=== PATIENT | female | born 1930 | race Caucasian/White ===

== ENCOUNTER 2016-03-19 14:38 | Inpatient (IN) | payer OTHER ==
[~2016-03-19] VITALS: Ht 152.4 cm; Wt 91.6 kg
[~2016-03-19 14:38] MED LIST: ALLOPURINOL300 MG PO; AVENTYL,PAMELOR25 MG PO; BENICAR40 MG; BENICAR40 MG PO; CALCIUM 500 MG1 EACH PO; CILOSTAZOL100 MG; CILOSTAZOL100 MG PO; CLONIDINE1 EACH TD; COUMADIN2.5 MG; DAILY VITE1 EAC1 PO; DIGOX250 MCG PO; DIGOXIN125 MCG; DIGOXIN125 MCG PO; FISH OIL500 MG; FUROSEMIDE40 MG PO; Fiber Therapy PO; Fish Oil PO; IRBESARTAN150 MG PO; KLOR-CON M2020 MEQ PO; LASIX40 MG PO; LEVOTHYROXINE125 MCG; LEVOTHYROXINE125 MCG PO; LEVOTHYROXINE150 MCG PO; LOMOTIL TABLET1 EACH PO; LOSARTAN POTASS50 MG PO; Lanoxin,Digitek PO; Lasix PO; Levothroid,Synthroid PO; METAMUCIL POWD798 GM PO; METOPROLOL SUC200 MG; METOPROLOL SUC200 MG PO; METOPROLOL SUCC50 MG PO; MYCOSTATIN1 APPLICAT TP; NORTRIPTYLINE H25 MG PO; PREVALITE PACKET4 GM PO; Pletal PO; SIMVASTATIN20 MG; SIMVASTATIN20 MG PO; SYNTHROID175 MCG PO; Toprol XL PO; WARFARIN SODIUM2 MG PO; Zocor PO; Zyloprim PO; [UNRECOGNIZED DRUG - OTHER] BOTH EYES; [UNRECOGNIZED DRUG - SUPPLY]
[2016-03-19 16:03] LABS: EOSINOPHIL (%) 1.5 % (0-5); EOSINOPHIL COUNT 0.1 K/uL (0-0.3); HEMATOCRIT 31.1 % (36.0-46.0); IMMATURE GRANULOCYTE (%) 0.5 % (0.0-0.7); IMMATURE GRANULOCYTE COUNT 0.3 K/uL; LYMPHOCYTE COUNT 2.1 K/uL (1.0-2.8); MCH 30.2 PG (29.0-34.0); MCHC 33.1 G/DL (30.0-36.0); MCV 91.2 FL (83-99); MEAN PLAT.VOLUME 9.5 uM^3 (9.5-12.4); MONOCYTE (%) 7.8 % (3-12); MONOCYTE COUNT 0.5 K/uL (0-0.8); NEUTROPHIL (%) 58.3 % (45-76); NEUTROPHIL COUNT 3.9 K/uL (1.8-6.4); PLATELET COUNT 206 K/uL (156-360); RBC DIS.WIDTH-CV 16.1 % (11.8-14.6); RBC DIS.WIDTH-SD 51.7 % (39-53); RED BLOOD COUNT 3.41 M/uL (3.80-5.20); WHITE BLOOD COUNT 6.6 K/uL (4.1-10.2)
[2016-03-19 16:13] LABS: PROTHROMBIN TIME 93.2 (9.2-11.2)
[2016-03-19 16:14] LABS: INTER. NORMALIZED RATIO 8.6
[2016-03-19 16:39] LABS: CHLORIDE 111 mEq/L (99-109); POTASSIUM 5.4 mEq/L (3.7-5.4); SODIUM 140 mEq/L (136-147)
[2016-03-19 16:41] LABS: GLUCOSE 92 mg/dL (70-99)
[2016-03-19 16:43] LABS: ANION GAP 9 MEQ/L (2-14); TOTAL BILIRUBIN 0.3 mg/dL (0.0-1.0)
[2016-03-19 16:45] LABS: ALKALINE PHOSPHATASE 62 IU/L (3-129); GFR ESTIMATE (CALCULATED) 42 mL/min/
[2016-03-19 16:46] LABS: UREA NITROGEN (BUN) 73 mg/dL (9-23)
[2016-03-19 16:54] LABS: DIGOXIN 0.7 ng/mL (0.8-2.0)
[2016-03-19 17:06] LABS: ADD MIUA? YES; BILIRUBIN NEGATIVE; BLOOD MODERATE; COLOR YELLOW ((YELLOW)); GLUCOSE (STRIP) NEGATIVE; KETONES NEGATIVE; LEUKOCYTES NEGATIVE; NITRITE NEGATIVE; PROTEIN (STRIP) NEGATIVE; SPECIFIC GRAVITY 1.016 (1.000-1.030); UROBILINOGEN 0.2 MG/DL (0.2-1.0)
[2016-03-19 17:36] LABS: BACTERIA 1+; CASTS NONE SEEN /LPF; EPITHELIAL CELLS RARE; MUCUS NONE SEEN; UCUL ADDED? NO; WHITE BLOOD CELLS NONE SEEN /HPF (0-5)
[2016-03-19 17:37] LABS: AMORPHOUS URATES CRYSTALS 2+; CRYSTALS PRESENT
[2016-03-19 18:26] LABS: TROP-I INTERPRETATION NEGATIVE; TROPONIN-I 0.04 ng/mL (0.0-0.30)
[2016-03-19] MEDS ORDERED: COUMADIN3 MG PO (19:43)
[2016-03-19] MEDS ORDERED: LEVO-T175 MCG PO (20:32)
[2016-03-19] MEDS ORDERED: INDERAL20 MG PO (20:34)
[2016-03-19 22:35] VITALS: BP 171/70
[2016-03-20 03:50] VITALS: BP 109/46
[2016-03-20 06:48] LABS: HEMATOCRIT 27.9 % (36.0-46.0); MCH 29.9 PG (29.0-34.0); MCHC 32.6 G/DL (30.0-36.0); MCV 91.8 FL (83-99); MEAN PLAT.VOLUME 11.1 uM^3 (9.5-12.4); PLATELET COUNT 169 K/uL (156-360); RBC DIS.WIDTH-CV 16.3 % (11.8-14.6); RBC DIS.WIDTH-SD 54.7 % (39-53); RED BLOOD COUNT 3.04 M/uL (3.80-5.20); WHITE BLOOD COUNT 5.9 K/uL (4.1-10.2)
[2016-03-20 07:00] VITALS: BP 144/61
[2016-03-20 07:12] LABS: INTER. NORMALIZED RATIO 2.2; PROTHROMBIN TIME 22.6 (9.2-11.2)
[2016-03-20 07:19] LABS: ANION GAP 9 MEQ/L (2-14); CHLORIDE 112 MEQ/L (99-109); GFR ESTIMATE (CALCULATED) 46 mL/min/; GLUCOSE 74 mg/dL (70-99); POTASSIUM 4.4 MEQ/L (3.7-5.4); SAMPLE HEMOLYSIS CHECK 0; SAMPLE ICTERIC CHECK 0; SAMPLE LIPEMIA CHECK 0; SODIUM 141 MEQ/L (136-147); UREA NITROGEN (BUN) 62 mg/dL (9-23)
[2016-03-20 13:00] VITALS: BP 122/57
[2016-03-20 13:22] VITALS: BP 130/62
[2016-03-20 14:54] LABS: INTER. NORMALIZED RATIO 1.7; PROTHROMBIN TIME 17.6 (9.2-11.2)
[2016-03-20 15:09] LABS: MCH 29.6 PG (29.0-34.0); MCHC 32.5 G/DL (30.0-36.0); MCV 91.2 FL (83-99); MEAN PLAT.VOLUME 10.6 uM^3 (9.5-12.4); PLATELET COUNT 172 K/uL (156-360); RBC DIS.WIDTH-CV 16.7 % (11.8-14.6); RBC DIS.WIDTH-SD 54.5 % (39-53); RED BLOOD COUNT 3.07 M/uL (3.80-5.20); WHITE BLOOD COUNT 6.2 K/uL (4.1-10.2)
[2016-03-20 15:16] LABS: EOSINOPHIL COUNT 0.1 K/uL (0-0.3); IMMATURE GRANULOCYTE (%) 0.3 % (0.0-0.7); LYMPHOCYTE COUNT 1.6 K/uL (1.0-2.8); MONOCYTE (%) 5.6 % (3-12); MONOCYTE COUNT 0.4 K/uL (0-0.8); NEUTROPHIL (%) 68.1 % (45-76); NEUTROPHIL COUNT 4.3 K/uL (1.8-6.4)
[2016-03-20 20:00] VITALS: BP 132/59
[2016-03-20 21:12] LABS: POINT-OF-CARE METER ID UU13113781
[2016-03-20 23:20] VITALS: BP 136/60
[2016-03-21 03:00] VITALS: BP 139/67
[2016-03-21 05:51] LABS: HEMATOCRIT 27.4 % (36.0-46.0); MCH 29.4 PG (29.0-34.0); MCHC 32.5 G/DL (30.0-36.0); MCV 90.4 FL (83-99); RBC DIS.WIDTH-CV 16.3 % (11.8-14.6); RBC DIS.WIDTH-SD 53.5 % (39-53); RED BLOOD COUNT 3.03 M/uL (3.80-5.20); WHITE BLOOD COUNT 7.3 K/uL (4.1-10.2)
[2016-03-21 06:10] LABS: INTER. NORMALIZED RATIO 1.3; PROTHROMBIN TIME 13.8 (9.2-11.2)
[2016-03-21 06:27] LABS: ALKALINE PHOSPHATASE 52 IU/L (3-129); ANION GAP 9 MEQ/L (2-14); CHLORIDE 111 MEQ/L (99-109); GFR ESTIMATE (CALCULATED) 35 mL/min/; GLUCOSE 78 mg/dL (70-99); POTASSIUM 4.4 MEQ/L (3.7-5.4); SAMPLE HEMOLYSIS CHECK 0; SAMPLE ICTERIC CHECK 0; SAMPLE LIPEMIA CHECK 0; SODIUM 141 MEQ/L (136-147); TOTAL BILIRUBIN 0.4 MG/DL (0.0-1.0); UREA NITROGEN (BUN) 64 mg/dL (9-23)
[2016-03-21 07:00] VITALS: BP 148/72
[2016-03-21 07:04] LABS: PLATELET COUNT 120 K/uL (156-360)
[2016-03-21 08:17] LABS: POINT-OF-CARE USER ID NUTSLF44
[2016-03-21 11:00] VITALS: BP 152/78
[2016-03-21 11:58] LABS: POINT-OF-CARE USER ID NUTSLF44
[2016-03-21 15:00] VITALS: BP 119/56
[2016-03-21 17:29] LABS: POINT-OF-CARE METER ID UU13113781; POINT-OF-CARE USER ID ENVKC36
[2016-03-21 19:00] VITALS: BP 153/68
[2016-03-21 21:06] LABS: POINT-OF-CARE METER ID UU13113781
[2016-03-21 23:15] VITALS: BP 152/69
[2016-03-22 03:00] VITALS: BP 137/65
[2016-03-22] MEDS ORDERED: METOPROLOL SUCC50 MG PO (06:32)
[2016-03-22] MEDS ORDERED: PROTONIX40 MG PO (06:32)
[2016-03-22 06:44] LABS: HEMATOCRIT 27.4 % (36.0-46.0); MCH 30.2 PG (29.0-34.0); MCHC 33.2 G/DL (30.0-36.0); RBC DIS.WIDTH-CV 16.5 % (11.8-14.6); RBC DIS.WIDTH-SD 54.1 % (39-53); RED BLOOD COUNT 3.01 M/uL (3.80-5.20); WHITE BLOOD COUNT 7.5 K/uL (4.1-10.2)
[2016-03-22 06:50] LABS: MEAN PLAT.VOLUME 11.3 uM^3 (9.5-12.4)
[2016-03-22 06:56] LABS: PLATELET COUNT 191 K/uL (156-360)
[2016-03-22 09:00] VITALS: BP 153/67
[2016-03-22 09:11] LABS: ALKALINE PHOSPHATASE 54 IU/L (3-129); ANION GAP 11 MEQ/L (2-14); CHLORIDE 111 MEQ/L (99-109); GFR ESTIMATE (CALCULATED) 38 mL/min/; GLUCOSE 80 mg/dL (70-99); POTASSIUM 4.1 MEQ/L (3.7-5.4); SAMPLE HEMOLYSIS CHECK 0; SAMPLE ICTERIC CHECK 0; SAMPLE LIPEMIA CHECK 0; SODIUM 145 MEQ/L (136-147); UREA NITROGEN (BUN) 48 mg/dL (9-23)
[2016-03-22 09:12] LABS: TOTAL BILIRUBIN 0.5 MG/DL (0.0-1.0)
== END 2016-03-22 10:34 | disposition home health service (06) | DRG 378 ==
LOC: EME 14:38 → EDOF 20:58 → 4EAST 20:58
PROVIDERS: Internal Medicine; Internal Medicine Gastroenterology; Physician Assistant
PROC: 0DB68ZX Excision of Stomach, Via Natural or Artificial Opening Endoscopic, Diagnostic (ICD-10-PCS; principal; 2016-03-21)
DX: K25.4 Chronic or unspecified gastric ulcer with hemorrhage (principal); K26.4 Chronic or unspecified duodenal ulcer with hemorrhage; D50.0 Iron deficiency anemia secondary to blood loss (chronic); R79.1 Abnormal coagulation profile; T45.515A Adverse effect of anticoagulants, initial encounter; T44.7X1A Poisoning by beta-adrenoreceptor antagonists, accidental (unintentional), initial encounter; R00.1 Bradycardia, unspecified; E11.9 Type 2 diabetes mellitus without complications; I11.0 Hypertensive heart disease with heart failure; I50.9 Heart failure, unspecified; I48.91 Unspecified atrial fibrillation; I27.2 Other secondary pulmonary hypertension; M10.9 Gout, unspecified; K44.9 Diaphragmatic hernia without obstruction or gangrene; E66.9 Obesity, unspecified; E78.5 Hyperlipidemia, unspecified; I73.9 Peripheral vascular disease, unspecified; E03.9 Hypothyroidism, unspecified; Z85.3 Personal history of malignant neoplasm of breast; Z68.41 Body mass index [BMI] 40.0-44.9, adult; Z96.651 Presence of right artificial knee joint; Z79.01 Long term (current) use of anticoagulants
CPT/HCPCS: 80048; 80053; 80162; 81003; 82948; 84443; 84484; 85025; 85027; 85610; 86850; 86900; 86901; 88305; 88342 TC; 93005; 99281; 99285; B4087; C9113; J3430; J7040; J7050

== ENCOUNTER 2016-04-29 13:18 | Emergency (ER) | payer OTHER ==
[~2016-04-29] VITALS: Ht 152.4 cm; Wt 96.7 kg
[~2016-04-29 13:18] MED LIST changes: +COUMADIN3 MG PO; +INDERAL20 MG PO; +LEVO-T175 MCG PO; +PROTONIX40 MG PO
[2016-04-29 14:28] LABS: EOSINOPHIL (%) 2.1 % (0-5); EOSINOPHIL COUNT 0.1 K/uL (0-0.3); HEMATOCRIT 28.8 % (36.0-46.0); IMMATURE GRANULOCYTE (%) 0.5 % (0.0-0.7); IMMATURE GRANULOCYTE COUNT 0.3 K/uL; LYMPHOCYTE COUNT 1.3 K/uL (1.0-2.8); MCH 28.8 PG (29.0-34.0); MCHC 31.9 G/DL (30.0-36.0); MEAN PLAT.VOLUME 9.7 uM^3 (9.5-12.4); MONOCYTE (%) 10.3 % (3-12); MONOCYTE COUNT 0.6 K/uL (0-0.8); NEUTROPHIL (%) 64.8 % (45-76); NEUTROPHIL COUNT 3.8 K/uL (1.8-6.4); PLATELET COUNT 228 K/uL (156-360); RBC DIS.WIDTH-CV 14.9 % (11.8-14.6); RBC DIS.WIDTH-SD 47.4 % (39-53); WHITE BLOOD COUNT 5.8 K/uL (4.1-10.2)
[2016-04-29 14:37] LABS: CHLORIDE 108 mEq/L (99-109); POTASSIUM 4.7 mEq/L (3.7-5.4); SODIUM 143 mEq/L (136-147)
[2016-04-29 14:38] LABS: GLUCOSE 105 mg/dL (70-99)
[2016-04-29 14:40] LABS: ANION GAP 10 MEQ/L (2-14)
[2016-04-29 14:42] LABS: GFR ESTIMATE (CALCULATED) 46 mL/min/
[2016-04-29 14:43] LABS: UREA NITROGEN (BUN) 41 mg/dL (9-23)
[2016-04-29 14:48] LABS: TROP-I INTERPRETATION NEGATIVE; TROPONIN-I 0.02 ng/mL (0.0-0.30)
[2016-04-29 15:20] LABS: INTER. NORMALIZED RATIO 3.3; PROTHROMBIN TIME 35.3 (9.2-11.2); PTT 46.4 (25-32)
[2016-04-29] MEDS ORDERED: DOXYCYCLINE HY100 MG PO (16:55)
[2016-04-29 16:58] LABS: POINT-OF-CARE METER ID UU14100415
[2016-04-29 17:32] VITALS: BP 141/71
== END 2016-04-29 17:32 | disposition home or self-care (01) ==
LOC: EME 13:18
PROVIDERS: Emergency Medicine
DX: J06.9 Acute upper respiratory infection, unspecified (principal); I48.91 Unspecified atrial fibrillation; I10 Essential (primary) hypertension; Z96.653 Presence of artificial knee joint, bilateral; Z96.641 Presence of right artificial hip joint
CPT/HCPCS: 71010; 80048; 80162; 82948; 84484; 85025; 85610; 85730; 99281; 99285

== ENCOUNTER 2016-05-15 22:47 | Inpatient (IN) | payer OTHER ==
[~2016-05-15] VITALS: Ht 152.4 cm; Wt 82.0 kg
[~2016-05-15 22:47] MED LIST changes: +DOXYCYCLINE HY100 MG PO
[2016-05-15 23:20] LABS: POINT-OF-CARE METER ID UU14100415
[2016-05-15 23:38] LABS: EOSINOPHIL (%) 0.4 % (0-5); HEMATOCRIT 31.1 % (36.0-46.0); IMMATURE GRANULOCYTE (%) 0.9 % (0.0-0.7); IMMATURE GRANULOCYTE COUNT 0.1 K/uL; INSTRUMENT ABS NEUTROPHIL CT 3.6 K/uL; LYMPHOCYTE COUNT 1.3 K/uL (1.0-2.8); MCH 28.2 PG (29.0-34.0); MCHC 31.5 G/DL (30.0-36.0); MCV 89.6 FL (83-99); MEAN PLAT.VOLUME 10.1 uM^3 (9.5-12.4); MONOCYTE (%) 8.6 % (3-12); MONOCYTE COUNT 0.5 K/uL (0-0.8); NEUTROPHIL (%) 65.3 % (45-76); NEUTROPHIL COUNT 3.6 K/uL (1.8-6.4); NRBC (%) 1.6 /100 WBC (0-0); PLATELET COUNT 213 K/uL (156-360); RBC DIS.WIDTH-CV 15.4 % (11.8-14.6); RBC DIS.WIDTH-SD 49.5 % (39-53); RED BLOOD COUNT 3.47 M/uL (3.80-5.20); WHITE BLOOD COUNT 5.5 K/uL (4.1-10.2)
[2016-05-15 23:50] LABS: INTER. NORMALIZED RATIO 1.8; PROTHROMBIN TIME 18.3 (9.2-11.2); PTT 31.5 (25-32)
[2016-05-15 23:58] LABS: TROP-I INTERPRETATION NEGATIVE; TROPONIN-I 0.03 ng/mL (0.0-0.30)
[2016-05-16 00:07] LABS: CHLORIDE 103 mEq/L (99-109); POTASSIUM 3.7 mEq/L (3.7-5.4); SODIUM 142 mEq/L (136-147)
[2016-05-16 00:09] LABS: GLUCOSE 105 mg/dL (70-99)
[2016-05-16 00:10] LABS: ANION GAP 13 MEQ/L (2-14)
[2016-05-16 00:11] LABS: TOTAL BILIRUBIN 0.5 mg/dL (0.0-1.0)
[2016-05-16 00:12] LABS: ALKALINE PHOSPHATASE 77 IU/L (3-129)
[2016-05-16 00:13] LABS: GFR ESTIMATE (CALCULATED) 33 mL/min/
[2016-05-16 00:14] LABS: UREA NITROGEN (BUN) 67 mg/dL (9-23)
[2016-05-16 00:16] LABS: CREATINE KINASE 50 IU/L (1-294); TOTAL CK 50 IU/L (1-294)
[2016-05-16 00:18] LABS: ADD MIUA? YES; BILIRUBIN NEGATIVE; BLOOD MODERATE; COLOR YELLOW ((YELLOW)); GLUCOSE (STRIP) NEGATIVE; KETONES NEGATIVE; LEUKOCYTES NEGATIVE; NITRITE NEGATIVE; PROTEIN (STRIP) 100; UROBILINOGEN 0.2 MG/DL (0.2-1.0)
[2016-05-16 00:21] LABS: CK-MB 6.1 ng/mL (0.0-4.9)
[2016-05-16 00:22] LABS: DIGOXIN 1.4 ng/mL (0.8-2.0)
[2016-05-16 00:26] LABS: BACTERIA RARE /HPF; EPITHELIAL CELLS RARE /HPF; MUCUS TRACE /LPF; RED BLOOD CELLS 20-30 /HPF (0-5); UCUL ADDED? NO; WHITE BLOOD CELLS 0-5 /HPF (0-5)
[2016-05-16] MEDS ORDERED: PROTONIX40 MG PO (01:01)
[2016-05-16] MEDS ORDERED: METOPROLOL SUCC50 MG PO (01:01)
[2016-05-16] MEDS ORDERED: FERROUS SULFAT325 MG PO (01:02)
[2016-05-16] MEDS ORDERED: METOLAZONE2.5 MG PO (01:03)
[2016-05-16 04:15] VITALS: BP 136/60
[2016-05-16 04:21] VITALS: BP 136/50
[2016-05-16 05:43] LABS: METH RESISTANT S AUREUS PCR NEGATIVE (NEGATIVE)
[2016-05-16 05:44] LABS: PROBE CHECK PASS; SPECIMEN PROCESSING CONTROL PASS
[2016-05-16 06:34] LABS: TROP-I INTERPRETATION NEGATIVE; TROPONIN-I 0.05 ng/mL (0.0-0.30)
[2016-05-16 08:00] VITALS: BP 106/45
[2016-05-16 12:00] VITALS: BP 132/55
[2016-05-16 12:34] LABS: TROP-I INTERPRETATION NEGATIVE; TROPONIN-I 0.05 ng/mL (0.0-0.30)
[2016-05-16 16:00] VITALS: BP 146/50
[2016-05-16 20:00] VITALS: BP 155/47
[2016-05-17] VITALS: BP 142/42
[2016-05-17 04:00] VITALS: BP 154/58
[2016-05-17 05:48] LABS: POINT-OF-CARE METER ID UU14174217
[2016-05-17 06:23] LABS: ANION GAP 11 MEQ/L (2-14); CHLORIDE 107 MEQ/L (99-109); GFR ESTIMATE (CALCULATED) 38 mL/min/; GLUCOSE 90 mg/dL (70-99); SAMPLE HEMOLYSIS CHECK 0; SAMPLE ICTERIC CHECK 0; SAMPLE LIPEMIA CHECK 0; SODIUM 145 MEQ/L (136-147); UREA NITROGEN (BUN) 55 mg/dL (9-23)
[2016-05-17 06:27] LABS: HEMATOCRIT 24.5 % (36.0-46.0); MCH 28.9 PG (29.0-34.0); MCHC 31.8 G/DL (30.0-36.0); MCV 90.7 FL (83-99); MEAN PLAT.VOLUME 10.6 uM^3 (9.5-12.4); NRBC (%) 0.7 /100 WBC (0-0); PLATELET COUNT 175 K/uL (156-360); RBC DIS.WIDTH-CV 15.7 % (11.8-14.6); RBC DIS.WIDTH-SD 49.6 % (39-53); WHITE BLOOD COUNT 7.4 K/uL (4.1-10.2)
[2016-05-17 07:25] VITALS: BP 137/73; BP 163/72
[2016-05-17 13:14] VITALS: BP 121/58
[2016-05-17 14:49] LABS: INTER. NORMALIZED RATIO 1.6; PROTHROMBIN TIME 16.4 (9.2-11.2); PTT 29.4 (25-32)
[2016-05-17 16:08] VITALS: BP 166/74
[2016-05-17 19:28] VITALS: BP 142/87
[2016-05-18] VITALS (8 sets, daily range): BP systolic 130–175; BP diastolic 63–83
[2016-05-18 07:16] LABS: HEMATOCRIT 28.7 % (36.0-46.0); MCH 28.9 PG (29.0-34.0); MCHC 31.7 G/DL (30.0-36.0); MCV 91.1 FL (83-99); MEAN PLAT.VOLUME 11.1 uM^3 (9.5-12.4); NRBC (%) 0.7 /100 WBC (0-0); RBC DIS.WIDTH-CV 16.2 % (11.8-14.6); RBC DIS.WIDTH-SD 50.7 % (39-53); RED BLOOD COUNT 3.15 M/uL (3.80-5.20)
[2016-05-18 07:17] LABS: PLATELET COUNT 244 K/uL (156-360); WHITE BLOOD COUNT 10.5 K/uL (4.1-10.2)
[2016-05-18 07:21] LABS: ALKALINE PHOSPHATASE 61 IU/L (3-129); ANION GAP 12 MEQ/L (2-14); CHLORIDE 107 MEQ/L (99-109); GFR ESTIMATE (CALCULATED) 50 mL/min/; GLUCOSE 100 mg/dL (70-99); SAMPLE HEMOLYSIS CHECK 1; SAMPLE ICTERIC CHECK 0; SAMPLE LIPEMIA CHECK 0; SODIUM 145 MEQ/L (136-147); TOTAL BILIRUBIN 0.7 MG/DL (0.0-1.0); UREA NITROGEN (BUN) 45 mg/dL (9-23)
[2016-05-18 07:22] LABS: POTASSIUM 4.3 MEQ/L (3.7-5.4)
[2016-05-18 13:31] LABS: INFLUENZA A VIRAL ANTIGEN NEGATIVE; INFLUENZA B VIRAL ANTIGEN NEGATIVE
[2016-05-18 13:52] LABS: INTER. NORMALIZED RATIO 1.5; PROTHROMBIN TIME 15.4 (9.2-11.2); PTT 26.7 (25-32)
[2016-05-19] VITALS (7 sets, daily range): BP systolic 136–183; BP diastolic 66–87
[2016-05-19 07:25] LABS: ALKALINE PHOSPHATASE 60 IU/L (3-129); ANION GAP 11 MEQ/L (2-14); CHLORIDE 110 MEQ/L (99-109); GFR ESTIMATE (CALCULATED) 46 mL/min/; GLUCOSE 108 mg/dL (70-99); SAMPLE HEMOLYSIS CHECK 0; SAMPLE ICTERIC CHECK 0; SAMPLE LIPEMIA CHECK 0; SODIUM 150 MEQ/L (136-147); TOTAL BILIRUBIN 0.7 MG/DL (0.0-1.0); UREA NITROGEN (BUN) 37 mg/dL (9-23)
[2016-05-20 03:54] VITALS: BP 150/68
[2016-05-20 07:04] LABS: HEMATOCRIT 27.8 % (36.0-46.0); MCH 29.6 PG (29.0-34.0); MCHC 31.3 G/DL (30.0-36.0); MCV 94.6 FL (83-99); MEAN PLAT.VOLUME 10.6 uM^3 (9.5-12.4); PLATELET COUNT 183 K/uL (156-360); RBC DIS.WIDTH-CV 16.8 % (11.8-14.6); RBC DIS.WIDTH-SD 54.9 % (39-53); RED BLOOD COUNT 2.94 M/uL (3.80-5.20); WHITE BLOOD COUNT 10.6 K/uL (4.1-10.2)
[2016-05-20 07:20] LABS: ALKALINE PHOSPHATASE 60 IU/L (3-129); ANION GAP 10 MEQ/L (2-14); CHLORIDE 109 MEQ/L (99-109); GFR ESTIMATE (CALCULATED) 50 mL/min/; GLUCOSE 92 mg/dL (70-99); POTASSIUM 3.8 MEQ/L (3.7-5.4); SAMPLE HEMOLYSIS CHECK 0; SAMPLE ICTERIC CHECK 0; SAMPLE LIPEMIA CHECK 0; SODIUM 147 MEQ/L (136-147); TOTAL BILIRUBIN 0.6 MG/DL (0.0-1.0); UREA NITROGEN (BUN) 36 mg/dL (9-23)
[2016-05-20 15:47] VITALS: BP 165/76
[2016-05-20 18:50] VITALS: BP 112/57
[2016-05-20 23:49] VITALS: BP 176/74
[2016-05-21 04:25] VITALS: BP 176/76
[2016-05-21 08:30] VITALS: BP 164/74
[2016-05-21 11:40] VITALS: BP 132/63
[2016-05-21 13:13] LABS: HEMATOCRIT 30.8 % (36.0-46.0); MCH 28.7 PG (29.0-34.0); MCHC 29.9 G/DL (30.0-36.0); MEAN PLAT.VOLUME 11.2 uM^3 (9.5-12.4); NRBC (%) 1.9 /100 WBC (0-0); PLATELET COUNT 182 K/uL (156-360); RBC DIS.WIDTH-CV 17.2 % (11.8-14.6); RBC DIS.WIDTH-SD 56.5 % (39-53); RED BLOOD COUNT 3.21 M/uL (3.80-5.20); WHITE BLOOD COUNT 8.4 K/uL (4.1-10.2)
[2016-05-21 13:38] LABS: ANION GAP 12 MEQ/L (2-14); CHLORIDE 111 MEQ/L (99-109); POTASSIUM 4.3 MEQ/L (3.7-5.4); SAMPLE HEMOLYSIS CHECK 0; SAMPLE ICTERIC CHECK 0; SAMPLE LIPEMIA CHECK 0; SODIUM 148 MEQ/L (136-147); TOTAL BILIRUBIN 0.6 MG/DL (0.0-1.0)
[2016-05-21 13:44] LABS: ALKALINE PHOSPHATASE 64 IU/L (3-129); GFR ESTIMATE (CALCULATED) 56 mL/min/; GLUCOSE 89 mg/dL (70-99); UREA NITROGEN (BUN) 31 mg/dL (9-23)
[2016-05-21 16:00] VITALS: BP 104/52
[2016-05-21 21:00] VITALS: BP 108/53
[2016-05-21 23:36] VITALS: BP 143/60
[2016-05-22 04:04] VITALS: BP 132/59
[2016-05-22 05:13] VITALS: BP 145/65
[2016-05-22 05:53] LABS: HEMATOCRIT 26.9 % (36.0-46.0); MCH 28.8 PG (29.0-34.0); MCHC 30.1 G/DL (30.0-36.0); MCV 95.7 FL (83-99); MEAN PLAT.VOLUME 10.9 uM^3 (9.5-12.4); NRBC (%) 0.7 /100 WBC (0-0); PLATELET COUNT 190 K/uL (156-360); RBC DIS.WIDTH-SD 55.1 % (39-53); RED BLOOD COUNT 2.81 M/uL (3.80-5.20); WHITE BLOOD COUNT 8.4 K/uL (4.1-10.2)
[2016-05-22 06:13] LABS: ALKALINE PHOSPHATASE 50 IU/L (3-129); ANION GAP 11 MEQ/L (2-14); CHLORIDE 109 MEQ/L (99-109); GFR ESTIMATE (CALCULATED) 35 mL/min/; GLUCOSE 84 mg/dL (70-99); SAMPLE HEMOLYSIS CHECK 0; SAMPLE ICTERIC CHECK 0; SAMPLE LIPEMIA CHECK 0; SODIUM 146 MEQ/L (136-147); TOTAL BILIRUBIN 0.6 MG/DL (0.0-1.0); UREA NITROGEN (BUN) 37 mg/dL (9-23)
[2016-05-22] MEDS ORDERED: HYDROCHLOROTHIA25 MG PO (06:38)
[2016-05-22] MEDS ORDERED: METOPROLOL SUCC50 MG PO (06:38)
[2016-05-22] MEDS ORDERED: CEFTIN500 MG PO (06:38)
[2016-05-22] MEDS ORDERED: K-DUR20 MEQ PO (06:38)
[2016-05-22] MEDS ORDERED: LISINOPRIL5 MG PO (06:38)
[2016-05-22 08:30] VITALS: BP 174/68
[2016-05-22 11:45] VITALS: BP 150/40
[2016-05-22 16:30] VITALS: BP 148/67
[2016-05-22 22:51] VITALS: BP 138/68
[2016-05-23 03:06] VITALS: BP 161/74
[2016-05-23 06:39] LABS: HEMATOCRIT 27.3 % (36.0-46.0); MCH 28.7 PG (29.0-34.0); MCV 95.5 FL (83-99); MEAN PLAT.VOLUME 11.2 uM^3 (9.5-12.4); NRBC (%) 0.8 /100 WBC (0-0); PLATELET COUNT 195 K/uL (156-360); RBC DIS.WIDTH-CV 17.6 % (11.8-14.6); RBC DIS.WIDTH-SD 57.4 % (39-53); RED BLOOD COUNT 2.86 M/uL (3.80-5.20); WHITE BLOOD COUNT 7.1 K/uL (4.1-10.2)
[2016-05-23 07:05] VITALS: BP 164/74
[2016-05-23 07:28] LABS: ALKALINE PHOSPHATASE 54 IU/L (3-129); ANION GAP 8 MEQ/L (2-14); CHLORIDE 113 MEQ/L (99-109); GFR ESTIMATE (CALCULATED) 50 mL/min/; GLUCOSE 87 mg/dL (70-99); POTASSIUM 4.6 MEQ/L (3.7-5.4); SAMPLE HEMOLYSIS CHECK 0; SAMPLE ICTERIC CHECK 0; SAMPLE LIPEMIA CHECK 0; SODIUM 147 MEQ/L (136-147); UREA NITROGEN (BUN) 29 mg/dL (9-23)
[2016-05-23 07:40] LABS: TOTAL BILIRUBIN 0.4 MG/DL (0.0-1.0)
[2016-05-23 11:26] VITALS: BP 147/69
[2016-05-23 15:48] VITALS: BP 145/65
[2016-05-23 19:30] VITALS: BP 154/67
[2016-05-24 06:58] LABS: HEMATOCRIT 27.4 % (36.0-46.0); MCH 29.4 PG (29.0-34.0); MCHC 30.7 G/DL (30.0-36.0); MCV 95.8 FL (83-99); MEAN PLAT.VOLUME 10.9 uM^3 (9.5-12.4); NRBC (%) 0.3 /100 WBC (0-0); PLATELET COUNT 178 K/uL (156-360); RBC DIS.WIDTH-CV 17.6 % (11.8-14.6); RBC DIS.WIDTH-SD 58.4 % (39-53); RED BLOOD COUNT 2.86 M/uL (3.80-5.20); WHITE BLOOD COUNT 6.9 K/uL (4.1-10.2)
[2016-05-24 07:07] LABS: INTER. NORMALIZED RATIO 1.2; PROTHROMBIN TIME 11.9 (9.2-11.2); PTT 22.1 (25-32)
[2016-05-24 07:16] VITALS: BP 144/65
[2016-05-24 07:24] LABS: ALKALINE PHOSPHATASE 58 IU/L (3-129); ANION GAP 10 MEQ/L (2-14); CHLORIDE 113 MEQ/L (99-109); GFR ESTIMATE (CALCULATED) 50 mL/min/; GLUCOSE 86 mg/dL (70-99); POTASSIUM 4.3 MEQ/L (3.7-5.4); SAMPLE HEMOLYSIS CHECK 0; SAMPLE ICTERIC CHECK 0; SAMPLE LIPEMIA CHECK 0; SODIUM 145 MEQ/L (136-147); TOTAL BILIRUBIN 0.4 MG/DL (0.0-1.0); UREA NITROGEN (BUN) 26 mg/dL (9-23)
[2016-05-24 11:08] VITALS: BP 159/65
[2016-05-24 15:43] VITALS: BP 139/86
[2016-05-24 19:18] VITALS: BP 136/63
[2016-05-24 22:53] VITALS: BP 153/71
[2016-05-25 06:24] LABS: HEMATOCRIT 27.6 % (36.0-46.0); MCH 29.1 PG (29.0-34.0); MCHC 30.4 G/DL (30.0-36.0); MCV 95.5 FL (83-99); MEAN PLAT.VOLUME 10.9 uM^3 (9.5-12.4); PLATELET COUNT 194 K/uL (156-360); RBC DIS.WIDTH-CV 17.9 % (11.8-14.6); RBC DIS.WIDTH-SD 59.1 % (39-53); RED BLOOD COUNT 2.89 M/uL (3.80-5.20); WHITE BLOOD COUNT 6.7 K/uL (4.1-10.2)
[2016-05-25 06:59] LABS: ALKALINE PHOSPHATASE 55 IU/L (3-129); ANION GAP 11 MEQ/L (2-14); CHLORIDE 115 MEQ/L (99-109); GFR ESTIMATE (CALCULATED) 56 mL/min/; GLUCOSE 78 mg/dL (70-99); POTASSIUM 4.5 MEQ/L (3.7-5.4); SAMPLE HEMOLYSIS CHECK 0; SAMPLE ICTERIC CHECK 0; SAMPLE LIPEMIA CHECK 0; SODIUM 149 MEQ/L (136-147); TOTAL BILIRUBIN 0.4 MG/DL (0.0-1.0); UREA NITROGEN (BUN) 26 mg/dL (9-23)
[2016-05-25 08:21] VITALS: BP 151/69
== END 2016-05-25 17:02 | DRG 308 ==
LOC: EME 22:47 → 4EAST 05-16 02:54 → EDOF 05-16 02:54 → 4WEST 05-16 04:02 → 4EAST 05-17 07:11 → 3EAST 05-22 04:45 → 5EAST 05-22 18:39
PROVIDERS: Emergency Medicine; Hospitalist; Internal Medicine
DX: R00.1 Bradycardia, unspecified (principal); J18.9 Pneumonia, unspecified organism; K92.2 Gastrointestinal hemorrhage, unspecified; N17.9 Acute kidney failure, unspecified; Z68.41 Body mass index [BMI] 40.0-44.9, adult; D64.9 Anemia, unspecified; E03.9 Hypothyroidism, unspecified; I50.9 Heart failure, unspecified; I48.2 Chronic atrial fibrillation; E87.6 Hypokalemia; I10 Essential (primary) hypertension; G25.0 Essential tremor; E78.5 Hyperlipidemia, unspecified; E11.9 Type 2 diabetes mellitus without complications; F03.90 Unspecified dementia, unspecified severity, without behavioral disturbance, psychotic disturbance, mood disturbance, and anxiety; Z79.01 Long term (current) use of anticoagulants; K27.9 Peptic ulcer, site unspecified, unspecified as acute or chronic, without hemorrhage or perforation; M25.511 Pain in right shoulder; R68.0 Hypothermia, not associated with low environmental temperature; E66.9 Obesity, unspecified; Z96.659 Presence of unspecified artificial knee joint; Z89.421 Acquired absence of other right toe(s)
CPT/HCPCS: 36415; 70450; 70551; 71010; 80048; 80053; 80162; 81003; 82140; 82533 91; 82550; 82553; 82945; 82948; 83605; 84157; 84439; 84443; 84484; 85025; 85027; 85610; 85730; 87040; 87086; 87116; 87205; 87502; 87641; 89051; 93005; 93970; 94799; 97530 GO; 97530 GP; 99281; 99285; J0696; J1644; J1720; J3430; J7050; J7120

== ENCOUNTER 2016-06-21 18:59 | Inpatient (IN) | payer OTHER ==
[~2016-06-21] VITALS: Ht 152.4 cm; Wt 96.6 kg
[~2016-06-21 18:59] MED LIST changes: +CEFTIN500 MG PO; +FERROUS SULFAT325 MG PO; +HYDROCHLOROTHIA25 MG PO; +K-DUR20 MEQ PO; +LISINOPRIL5 MG PO; +METOLAZONE2.5 MG PO
[2016-06-21 20:58] LABS: CHLORIDE 111 mEq/L (99-109); POTASSIUM 4.4 mEq/L (3.7-5.4); SODIUM 135 mEq/L (136-147)
[2016-06-21 21:01] LABS: EOSINOPHIL COUNT 0.1 K/uL (0-0.3); GLUCOSE 124 mg/dL (70-99); HEMATOCRIT 28.7 % (36.0-46.0); IMMATURE GRANULOCYTE (%) 0.8 % (0.0-0.7); INSTRUMENT ABS NEUTROPHIL CT 3.5 K/uL; LYMPHOCYTE COUNT 1.1 K/uL (1.0-2.8); MCH 29.2 PG (29.0-34.0); MCHC 33.4 G/DL (30.0-36.0); MCV 87.2 FL (83-99); MEAN PLAT.VOLUME 10.5 uM^3 (9.5-12.4); MONOCYTE (%) 4.9 % (3-12); MONOCYTE COUNT 0.2 K/uL (0-0.8); NEUTROPHIL (%) 71.6 % (45-76); NEUTROPHIL COUNT 3.5 K/uL (1.8-6.4); PLATELET COUNT 213 K/uL (156-360); RBC DIS.WIDTH-CV 18.6 % (11.8-14.6); RBC DIS.WIDTH-SD 58.2 % (39-53); RED BLOOD COUNT 3.29 M/uL (3.80-5.20); WHITE BLOOD COUNT 4.9 K/uL (4.1-10.2)
[2016-06-21 21:02] LABS: ANION GAP 11 MEQ/L (2-14); TOTAL BILIRUBIN 0.3 mg/dL (0.0-1.0)
[2016-06-21 21:04] LABS: ALKALINE PHOSPHATASE 60 IU/L (3-129); GFR ESTIMATE (CALCULATED) 31 mL/min/
[2016-06-21 21:07] LABS: UREA NITROGEN (BUN) 69 mg/dL (9-23)
[2016-06-21 21:32] LABS: TROP-I INTERPRETATION NEGATIVE; TROPONIN-I < 0.01 ng/mL (0.0-0.30)
[2016-06-21] MEDS ORDERED: HYDROCHLOROTHIA25 MG PO (23:28)
[2016-06-21] MEDS ORDERED: FUROSEMIDE40 MG PO (23:29)
[2016-06-21] MEDS ORDERED: METRONIDAZOLE500 MG PO (23:30)
[2016-06-22 02:36] VITALS: BP 95/49
[2016-06-22 05:15] LABS: HEMATOCRIT 24.8 % (36.0-46.0); MCHC 33.1 G/DL (30.0-36.0); MCV 87.6 FL (83-99); MEAN PLAT.VOLUME 10.4 uM^3 (9.5-12.4); PLATELET COUNT 183 K/uL (156-360); RBC DIS.WIDTH-CV 18.6 % (11.8-14.6); RBC DIS.WIDTH-SD 59.7 % (39-53); RED BLOOD COUNT 2.83 M/uL (3.80-5.20); WHITE BLOOD COUNT 6.2 K/uL (4.1-10.2)
[2016-06-22 05:50] LABS: ANION GAP 9 MEQ/L (2-14); CHLORIDE 113 MEQ/L (99-109); GFR ESTIMATE (CALCULATED) 31 mL/min/; POTASSIUM 4.5 MEQ/L (3.7-5.4); SAMPLE HEMOLYSIS CHECK 0; SAMPLE ICTERIC CHECK 0; SAMPLE LIPEMIA CHECK 0; SODIUM 136 MEQ/L (136-147); UREA NITROGEN (BUN) 68 mg/dL (9-23)
[2016-06-22 05:51] LABS: GLUCOSE 64 mg/dL (70-99)
[2016-06-22 08:37] VITALS: BP 126/44
[2016-06-22 11:51] VITALS: BP 113/57
[2016-06-22 15:55] VITALS: BP 116/58
[2016-06-22 19:35] VITALS: BP 120/54
[2016-06-22 22:27] LABS: ADD MIUA? YES; BILIRUBIN NEGATIVE; BLOOD MODERATE; COLOR YELLOW ((YELLOW)); GLUCOSE (STRIP) NEGATIVE; KETONES NEGATIVE; LEUKOCYTES TRACE; NITRITE NEGATIVE; PROTEIN (STRIP) NEGATIVE; SPECIFIC GRAVITY 1.006 (1.000-1.030); UROBILINOGEN 0.2 MG/DL (0.2-1.0)
[2016-06-22 22:48] LABS: UR CREATININE CONCENTRATION 41.3 MG/DL
[2016-06-22 22:58] LABS: BACTERIA RARE /HPF; EPITHELIAL CELLS RARE /HPF; MUCUS NONE SEEN /LPF; WHITE BLOOD CELLS 0-5 /HPF (0-5)
[2016-06-23] VITALS (7 sets, daily range): BP systolic 106–146; BP diastolic 52–65
[2016-06-23 05:46] LABS: HEMATOCRIT 24.2 % (36.0-46.0); MCH 29.2 PG (29.0-34.0); MCHC 33.1 G/DL (30.0-36.0); MCV 88.3 FL (83-99); MEAN PLAT.VOLUME 10.7 uM^3 (9.5-12.4); PLATELET COUNT 188 K/uL (156-360); RBC DIS.WIDTH-CV 19.1 % (11.8-14.6); RBC DIS.WIDTH-SD 60.7 % (39-53); RED BLOOD COUNT 2.74 M/uL (3.80-5.20)
[2016-06-23 05:56] LABS: ALKALINE PHOSPHATASE 48 IU/L (3-129); ANION GAP 8 MEQ/L (2-14); CHLORIDE 115 MEQ/L (99-109); GFR ESTIMATE (CALCULATED) 35 mL/min/; GLUCOSE 74 mg/dL (70-99); MAGNESIUM 1.1 mg/dl (1.3-2.7); POTASSIUM 4.2 MEQ/L (3.7-5.4); SAMPLE HEMOLYSIS CHECK 0; SAMPLE ICTERIC CHECK 0; SAMPLE LIPEMIA CHECK 0; SODIUM 138 MEQ/L (136-147); TOTAL BILIRUBIN 0.3 MG/DL (0.0-1.0); UREA NITROGEN (BUN) 63 mg/dL (9-23); URIC ACID 2.2 mg/dL (3.1-9.2)
[2016-06-24 03:31] VITALS: BP 126/59
[2016-06-24 04:56] LABS: HEMATOCRIT 24.5 % (36.0-46.0); MCH 28.9 PG (29.0-34.0); MCHC 33.5 G/DL (30.0-36.0); MCV 86.3 FL (83-99); MEAN PLAT.VOLUME 10.7 uM^3 (9.5-12.4); PLATELET COUNT 199 K/uL (156-360); RBC DIS.WIDTH-CV 18.8 % (11.8-14.6); RED BLOOD COUNT 2.84 M/uL (3.80-5.20); WHITE BLOOD COUNT 4.6 K/uL (4.1-10.2)
[2016-06-24 05:27] LABS: CHLORIDE 115 mEq/L (99-109); POTASSIUM 4.6 mEq/L (3.7-5.4); SODIUM 139 mEq/L (136-147)
[2016-06-24 05:29] LABS: GLUCOSE 71 mg/dL (70-99)
[2016-06-24 05:31] LABS: ANION GAP 9 MEQ/L (2-14)
[2016-06-24 05:33] LABS: GFR ESTIMATE (CALCULATED) 56 mL/min/
[2016-06-24 05:34] LABS: UREA NITROGEN (BUN) 50 mg/dL (9-23)
[2016-06-24 07:21] VITALS: BP 157/70
[2016-06-24 11:23] VITALS: BP 118/56
[2016-06-24 15:03] VITALS: BP 139/60
[2016-06-24 19:40] VITALS: BP 132/68
[2016-06-25] VITALS (7 sets, daily range): BP systolic 115–165; BP diastolic 54–70
[2016-06-25 06:53] LABS: ANION GAP 7 MEQ/L (2-14); CHLORIDE 114 MEQ/L (99-109); GFR ESTIMATE (CALCULATED) 56 mL/min/; GLUCOSE 85 mg/dL (70-99); POTASSIUM 4.3 MEQ/L (3.7-5.4); SAMPLE HEMOLYSIS CHECK 0; SAMPLE ICTERIC CHECK 0; SAMPLE LIPEMIA CHECK 0; SODIUM 141 MEQ/L (136-147); UREA NITROGEN (BUN) 37 mg/dL (9-23)
[2016-06-26 04:24] VITALS: BP 149/67
[2016-06-26 08:23] VITALS: BP 157/68
[2016-06-26 09:51] LABS: ANION GAP 6 MEQ/L (2-14); CHLORIDE 112 MEQ/L (99-109); GFR ESTIMATE (CALCULATED) > 59 mL/min/; GLUCOSE 131 mg/dL (70-99); MAGNESIUM 1.1 mg/dl (1.3-2.7); POTASSIUM 4.2 MEQ/L (3.7-5.4); SAMPLE HEMOLYSIS CHECK 0; SAMPLE ICTERIC CHECK 0; SAMPLE LIPEMIA CHECK 0; SODIUM 142 MEQ/L (136-147); UREA NITROGEN (BUN) 24 mg/dL (9-23)
[2016-06-26 11:29] VITALS: BP 150/65
[2016-06-26] MEDS ORDERED: NABI650T PO (12:06)
[2016-06-26] MEDS ORDERED: VANCOCIN HCL125 MG PO (12:08)
== END 2016-06-26 14:53 | disposition home health service (06) | DRG 372 ==
LOC: EME 18:59 → 3EAST 23:15 → EDOF 23:15 → 3EAST 06-22 02:05
PROVIDERS: Emergency Medicine; Internal Medicine; Internal Medicine Nephrology
DX: A04.7 Enterocolitis due to Clostridium difficile (principal); N17.9 Acute kidney failure, unspecified; E86.0 Dehydration; E83.42 Hypomagnesemia; E87.2 Acidosis; E86.9 Volume depletion, unspecified; E87.8 Other disorders of electrolyte and fluid balance, not elsewhere classified; D63.1 Anemia in chronic kidney disease; E11.22 Type 2 diabetes mellitus with diabetic chronic kidney disease; I13.0 Hypertensive heart and chronic kidney disease with heart failure and stage 1 through stage 4 chronic kidney disease, or unspecified chronic kidney disease; N18.3 Chronic kidney disease, stage 3 (moderate); I50.9 Heart failure, unspecified; F03.90 Unspecified dementia, unspecified severity, without behavioral disturbance, psychotic disturbance, mood disturbance, and anxiety; E11.40 Type 2 diabetes mellitus with diabetic neuropathy, unspecified; R68.0 Hypothermia, not associated with low environmental temperature; I87.2 Venous insufficiency (chronic) (peripheral); E78.5 Hyperlipidemia, unspecified; I48.2 Chronic atrial fibrillation; E03.9 Hypothyroidism, unspecified; E66.9 Obesity, unspecified; Z68.41 Body mass index [BMI] 40.0-44.9, adult; Z99.3 Dependence on wheelchair; K21.9 Gastro-esophageal reflux disease without esophagitis
CPT/HCPCS: 36415; 71010; 76770; 80048; 80053; 80069; 81003; 82570; 83605; 83735; 84100; 84300; 84439; 84443; 84484; 84550; 85025; 85027; 87040; 87493; 93005; 97530 GP; 99281; 99285; J1650; J3475; J7030; J7120